=== PATIENT | female | born 1995 | race Caucasian/White ===

== ENCOUNTER 2016-04-15 07:23 | Emergency (ER) | payer OTHER ==
[~2016-04-15] VITALS: Ht 175.3 cm; Wt 65.9 kg
[~2016-04-15 07:23] MED LIST: LO LOESTRIN FE1 TAB PO; MONODOX100 PO; PREDNISONE20 MG PO; ZYRTEC 10MG10 MG PO
[2016-04-15 07:30] VITALS: BP 120/82; TEMP 97.7
[2016-04-15 07:52] LABS: BASO # 0.1 (0.0-0.2); BASO % 1.4 % (0.0-2.0); EOS # 0.2 (0.0-0.7); EOS % 4.2 % (0-4.0); HEMATOCRIT 41.9 % (35.0-45.0); HEMOGLOBIN 13.7 g/dl (12.0-15.0); LYMPH # 2.9 (1.2-3.4); MEAN CELL VOLUME 87 fl (80.0-95.0); MEAN CORPUSCULAR HEMOGLOBIN 28 pg (26.0-32.0); MEAN CORPUSCULAR HGB CONC 33 g/dl (33.0-37.0); MEAN PLATELET VOLUME 10.1 fl (7.4-10.4); MONO # 0.5 (0.1-0.6); MONO % 8.2 % (1.7-9.3); PLATELET COUNT 202 K/mm3 (130-400); RED BLOOD COUNT 4.83 M/mm3 (4.10-5.30); REDCELL DISTRIBUTION WIDTH-CV 13.3 % (11.5-14.5); WHITE BLOOD COUNT 5.7 K/mm3 (4.8-10.8)
[2016-04-15 08:00] LABS: ADJUSTED CALCIUM 8.9 mg/dL (8.4-10.2); ALBUMIN 4.5 gm/dL (3.5-5.0); BILIRUBIN,TOTAL 0.9 mg/dL (0.0-1.0); CALCIUM 9.3 mg/dL (8.4-10.2); CREATININE, serum 0.96 mg/dL (0.52-1.25); PH 5 (5-8); POTASSIUM 3.5 mmol/L (3.4-5.0); SQUAMOUS EPITHELIAL 0-2 /hpf; TOTAL PROTEIN 7.8 gm/dL (6.4-8.2); URINE APPEARANCE Hazy; URINE BACTERIA Rare /hpf; URINE BILIRUBIN Negative (NEGATIVE); URINE BLOOD 2+ (NEGATIVE); URINE COLOR Yellow; URINE GLUCOSE Negative (NEGATIVE); URINE KETONE Negative (NEGATIVE); URINE RBC 20-50 /hpf; URINE UROBILINOGEN Negative (NEGATIVE)
[2016-04-15] MEDS ORDERED: ZOFRAN ODT4 MG PO (09:40)
[2016-04-15] MEDS ORDERED: NORCO 325 MG-51 TAB PO (09:40)
[2016-04-15 10:26] VITALS: PULSE 88
== END 2016-04-15 10:27 | disposition home or self-care (01) ==
LOC: COL.ER 07:23
PROVIDERS: Physician Assistant
DX: R10.11 Right upper quadrant pain (principal); R10.31 Right lower quadrant pain; R31.9 Hematuria, unspecified
CPT/HCPCS: J1885; J2270; J2405; J2550; J7030

== ENCOUNTER 2016-12-31 03:02 | Emergency (ER) | payer OTHER ==
[~2016-12-31] VITALS: Ht 175.3 cm; Wt 65.9 kg
[~2016-12-31 03:02] MED LIST changes: +NORCO 325 MG-51 TAB PO; +ZOFRAN ODT4 MG PO
[2016-12-31 03:09] VITALS: TEMP 97.1
[2016-12-31 03:55] LABS: BASO % 0.6 % (0.0-2.0); EOS # 0.2 (0.0-0.7); EOS % 3.3 % (0-4.0); GRAN # 5.5 (1.4-6.5); HEMATOCRIT 44.5 % (35.0-45.0); HEMOGLOBIN 14.9 g/dl (12.0-15.0); LYMPH # 0.7 (1.2-3.4); LYMPH % 10.6 % (20.0-51.0); MEAN CELL VOLUME 85 fl (80.0-95.0); MEAN CORPUSCULAR HEMOGLOBIN 28 pg (26.0-32.0); MEAN CORPUSCULAR HGB CONC 34 g/dl (33.0-37.0); MEAN PLATELET VOLUME 10.2 fl (7.4-10.4); MONO # 0.4 (0.1-0.6); MONO % 6.4 % (1.7-9.3); PLATELET COUNT 188 K/mm3 (130-400); RED BLOOD COUNT 5.24 M/mm3 (4.10-5.30); WHITE BLOOD COUNT 6.9 K/mm3 (4.8-10.8)
[2016-12-31 04:08] LABS: ADJUSTED CALCIUM 8.7 mg/dL (8.4-10.2); ALANINE AMINOTRANSFERASE 133 U/L (9-52); ALBUMIN 4.7 gm/dL (3.5-5.0); ALKALINE PHOSPHATASE 57 U/L (50-136); ANION GAP 14 mmol/L (7-16); BILIRUBIN,TOTAL 0.6 mg/dL (0.0-1.0); BLOOD UREA NITROGEN 11 mg/dL (7-17); C-REACTIVE PROTEIN < 0.5 mg/dL (0.0-0.9); CALCIUM 9.3 mg/dL (8.4-10.2); CARBON DIOXIDE 23 mmol/L (22-30); CHLORIDE 108 mmol/L (98-107); CREATININE, serum 0.76 mg/dL (0.52-1.25); GLUCOSE 103 mg/dL (74-106); LIPASE 130 U/L (23-300); POTASSIUM 3.8 mmol/L (3.4-5.0); SODIUM 144 mmol/L (137-145); TOTAL PROTEIN 7.1 gm/dL (6.4-8.2)
[2016-12-31 05:07] LABS: COLLECTION METHOD CLEAN CATCH
[2016-12-31 05:15] LABS: MUCOUS Present /lpf; PH 5 (5-8); URINE APPEARANCE Hazy; URINE BACTERIA Rare /hpf; URINE BILIRUBIN Negative (NEGATIVE); URINE BLOOD Negative (NEGATIVE); URINE COLOR Yellow; URINE GLUCOSE Negative (NEGATIVE); URINE KETONE Negative (NEGATIVE); URINE LEUKOCYTE ESTERASE Negative (NEGATIVE); URINE PROTEIN(semi-quant) Negative (NEGATIVE); URINE RBC 0-2 /hpf; URINE UROBILINOGEN Negative (NEGATIVE); URINE WBC 0-2 /hpf
[2016-12-31] MEDS ORDERED: ZOFRAN 4MG T4 MG/TAB PO (06:32)
[2016-12-31] MEDS ORDERED: PHENERGAN 25 TA25 MG PO (06:32)
[2016-12-31 07:16] VITALS: BP 101/58; PULSE 98
== END 2016-12-31 07:19 | disposition home or self-care (01) ==
LOC: COL.ER 03:02
PROVIDERS: Emergency Medicine
DX: R11.2 Nausea with vomiting, unspecified (principal); R19.7 Diarrhea, unspecified; Z98.890 Other specified postprocedural states
CPT/HCPCS: J2405; J2550; J7030

== ENCOUNTER 2017-09-14 13:16 | Emergency (ER) | payer OTHER ==
[~2017-09-14] VITALS: Ht 175.3 cm; Wt 68.2 kg
[~2017-09-14 13:16] MED LIST changes: +PHENERGAN 25 TA25 MG PO; +ZOFRAN 4MG T4 MG/TAB PO
[2017-09-14 13:19] VITALS: BP 124/84; PULSE 91; TEMP 98.1
== END 2017-09-14 16:19 | disposition home or self-care (01) ==
LOC: COL.ER 13:16
DX: S90.562A Insect bite (nonvenomous), left ankle, initial encounter (principal); W57.XXXA Bitten or stung by nonvenomous insect and other nonvenomous arthropods, initial encounter
CPT/HCPCS: J8540

== ENCOUNTER 2017-11-01 00:07 | Emergency (ER) | payer OTHER ==
[~2017-11-01] VITALS: Ht 175.3 cm; Wt 68.2 kg
[2017-11-01 00:16] VITALS: BP 129/81; TEMP 97.7
[2017-11-01] MEDS ORDERED: [UNRECOGNIZED DRUG - OTHER] (00:41)
[2017-11-01 01:23] LABS: COLLECTION METHOD CLEAN CATCH
[2017-11-01 01:28] LABS: MUCOUS Present /lpf; PH 6 (5-8); SQUAMOUS EPITHELIAL 0-2 /hpf; URINE APPEARANCE Clear; URINE BACTERIA None Seen /hpf; URINE BILIRUBIN Negative (NEGATIVE); URINE BLOOD Negative (NEGATIVE); URINE COLOR Yellow; URINE GLUCOSE Negative (NEGATIVE); URINE KETONE Negative (NEGATIVE); URINE LEUKOCYTE ESTERASE Negative (NEGATIVE); URINE NITRATE Negative (NEGATIVE); URINE PROTEIN(semi-quant) Negative (NEGATIVE); URINE RBC 0-2 /hpf; URINE UROBILINOGEN Negative (NEGATIVE)
[2017-11-01] MEDS ORDERED: ATARAX 25MG25 MG/TAB PO (02:04)
[2017-11-01 02:23] VITALS: PULSE 84
== END 2017-11-01 02:23 | disposition home or self-care (01) ==
LOC: COL.ER 00:07
PROVIDERS: Physician Assistant
DX: F41.0 Panic disorder [episodic paroxysmal anxiety] (principal); F32.9 Major depressive disorder, single episode, unspecified; K58.9 Irritable bowel syndrome, unspecified

== ENCOUNTER 2018-07-23 | Emergency (ER) | payer OTHER ==
[~2018-07-23] VITALS: Ht 175.3 cm; Wt 63.6 kg
[~2018-07-23] MED LIST changes: +ATARAX 25MG25 MG/TAB PO; +[UNRECOGNIZED DRUG - OTHER]
[2018-07-23 00:02] VITALS: BP 119/70; TEMP 97.1
[2018-07-23] MEDS ORDERED: CEPHALEXIN500 M1 PO (01:42)
[2018-07-23 02:00] VITALS: PULSE 84
== END 2018-07-23 02:00 | disposition home or self-care (01) ==
LOC: COL.ER
DX: S90.31XA Contusion of right foot, initial encounter (principal); S90.851A Superficial foreign body, right foot, initial encounter; F12.90 Cannabis use, unspecified, uncomplicated; W20.8XXA Other cause of strike by thrown, projected or falling object, initial encounter; Y92.009 Unspecified place in unspecified non-institutional (private) residence as the place of occurrence of the external cause